=== PATIENT | female | born 1955 | race Caucasian/White ===

== ENCOUNTER 2016-08-29 09:29 | Emergency (ER) | payer OTHER ==
[~2016-08-29] VITALS: Ht 157.5 cm; Wt 132.7 kg
[~2016-08-29 09:29] MED LIST: ADVAIR 250/501 DISK IH; BIOFLEX TABLET1 EACH PO; CLARITHROMYCIN500 MG PO; FISH OIL300 MG PO; LEVOFLOXACIN750 MG PO; MACROBID100 MG PO; METOPROLOL SUCC50 MG PO; NORVASC5 MG PO; OMEPRAZOLE40 M1 PO; PREDNISONE10 MG PO; PRILOSEC40 MG PO; TOPROL XL50 MG PO; TYLENOL EXTRA500 MG PO; VENTOLIN HFA18 GM IH; WOMEN'S 50+ DA1 EACH PO; ZYRTEC10 M1 PO; ZYRTEC10 M2 PO
[2016-08-29 09:53] LABS: HEMATOCRIT 43.9 % (36.0-46.0); MCH 28.5 PG (29.0-34.0); MCHC 32.3 G/DL (30.0-36.0); MCV 88.2 FL (83-99); PLATELET COUNT 361 K/uL (156-360); RBC DIS.WIDTH-CV 13.2 % (11.8-14.6); RBC DIS.WIDTH-SD 42.5 % (39-53); RED BLOOD COUNT 4.98 M/uL (3.80-5.20); WHITE BLOOD COUNT 11.4 K/uL (4.1-10.2)
[2016-08-29 10:03] LABS: CHLORIDE 102 mEq/L (99-109); POTASSIUM 4.3 mEq/L (3.7-5.4); SODIUM 141 mEq/L (136-147)
[2016-08-29 10:05] LABS: GLUCOSE 146 mg/dL (70-99)
[2016-08-29 10:06] LABS: ANION GAP 11 MEQ/L (2-14)
[2016-08-29 10:09] LABS: GFR ESTIMATE (CALCULATED) > 59 mL/min/
[2016-08-29 10:10] LABS: UREA NITROGEN (BUN) 8 mg/dL (9-23)
[2016-08-29 10:41] LABS: INTER. NORMALIZED RATIO 1.1; PROTHROMBIN TIME 10.8 (9.2-11.2); PTT 32.2 (25-32)
[2016-08-29] MEDS ORDERED: CLEOCIN300 MG PO (12:56)
[2016-08-29 13:12] VITALS: BP 159/79
== END 2016-08-29 13:15 | disposition home or self-care (01) ==
LOC: EME 09:29
DX: L76.32 Postprocedural hematoma of skin and subcutaneous tissue following other procedure (principal); S30.0XXA Contusion of lower back and pelvis, initial encounter; X58.XXXA Exposure to other specified factors, initial encounter; I10 Essential (primary) hypertension; R73.9 Hyperglycemia, unspecified; Z90.710 Acquired absence of both cervix and uterus; Z85.42 Personal history of malignant neoplasm of other parts of uterus; Z86.711 Personal history of pulmonary embolism; Z79.01 Long term (current) use of anticoagulants; J44.9 Chronic obstructive pulmonary disease, unspecified
CPT/HCPCS: 74177; 80048; 85027; 85610; 85730; 86850; 86900; 86901; 99281; 99285; J7030

== ENCOUNTER 2016-08-30 23:33 | Emergency (ER) | payer OTHER ==
[~2016-08-30] VITALS: Ht 157.5 cm; Wt 132.7 kg
[~2016-08-30 23:33] MED LIST changes: +CLEOCIN300 MG PO
[2016-08-30 23:41] VITALS: BP 184/83
== END 2016-08-31 01:00 | disposition left against medical advice (07) ==
LOC: EME 23:33
DX: G89.18 Other acute postprocedural pain (principal); Z53.21 Procedure and treatment not carried out due to patient leaving prior to being seen by health care provider
CPT/HCPCS: 80048; 85027; 85610; 85730

== ENCOUNTER 2016-09-09 16:49 | Emergency (ER) | payer OTHER ==
[~2016-09-09] VITALS: Ht 157.5 cm; Wt 132.1 kg
[2016-09-09 17:29] LABS: HEMATOCRIT 38.3 % (36.0-46.0); MCHC 32.4 G/DL (30.0-36.0); MCV 86.5 FL (83-99); MEAN PLAT.VOLUME 10.3 uM^3 (9.5-12.4); PLATELET COUNT 284 K/uL (156-360); RBC DIS.WIDTH-CV 13.7 % (11.8-14.6); RED BLOOD COUNT 4.43 M/uL (3.80-5.20); WHITE BLOOD COUNT 9.4 K/uL (4.1-10.2)
[2016-09-09 17:38] LABS: INTER. NORMALIZED RATIO 1.1; PROTHROMBIN TIME 10.7 (9.2-11.2)
[2016-09-09 17:39] LABS: CHLORIDE 106 mEq/L (99-109); POTASSIUM 3.8 mEq/L (3.7-5.4)
[2016-09-09 17:40] LABS: SODIUM 141 mEq/L (136-147)
[2016-09-09 17:42] LABS: GLUCOSE 246 mg/dL (70-99)
[2016-09-09 17:43] LABS: ANION GAP 11 MEQ/L (2-14)
[2016-09-09 17:44] LABS: TOTAL BILIRUBIN 0.2 mg/dL (0.0-1.0)
[2016-09-09 17:45] LABS: ALKALINE PHOSPHATASE 71 IU/L (3-129); GFR ESTIMATE (CALCULATED) > 59 mL/min/
[2016-09-09 17:47] LABS: UREA NITROGEN (BUN) 11 mg/dL (9-23)
[2016-09-09 19:22] VITALS: BP 204/97
== END 2016-09-09 19:27 | disposition home or self-care (01) ==
LOC: EME 16:49
DX: N99.840 Postprocedural hematoma of a genitourinary system organ or structure following a genitourinary system procedure (principal); Y83.8 Other surgical procedures as the cause of abnormal reaction of the patient, or of later complication, without mention of misadventure at the time of the procedure; J44.9 Chronic obstructive pulmonary disease, unspecified; I10 Essential (primary) hypertension; K21.9 Gastro-esophageal reflux disease without esophagitis; Z85.42 Personal history of malignant neoplasm of other parts of uterus
CPT/HCPCS: 80053; 85027; 85610; 86850; 86900; 86901; 99281; 99284

== ENCOUNTER 2017-12-16 04:26 | Inpatient (IN) | payer OTHER ==
[~2017-12-16] VITALS: Ht 157.5 cm; Wt 126.0 kg
[~2017-12-16 04:26] MED LIST changes: +TYLENOL ARTHRI650 MG PO; -TYLENOL EXTRA500 MG PO; -ZYRTEC10 M1 PO; +ZYRTEC10 M3 PO
[2017-12-16 05:27] LABS: HEMATOCRIT 42.7 % (36.0-46.0); HEMOGLOBIN 14.7 G/DL (11.9-15.5); MCH 30.1 PG (29.0-34.0); MCHC 34.4 G/DL (30.0-36.0); MCV 87.5 FL (83-99); PLATELET COUNT 199 K/uL (156-360); RBC DIS.WIDTH-CV 13.7 % (11.8-14.6); RBC DIS.WIDTH-SD 43.9 % (39-53); RED BLOOD COUNT 4.88 M/uL (3.80-5.20); WHITE BLOOD COUNT 7.7 K/uL (4.1-10.2)
[2017-12-16 05:28] LABS: CHLORIDE 105 mEq/L (99-109); POTASSIUM 3.9 mEq/L (3.7-5.4); SODIUM 142 mEq/L (136-147)
[2017-12-16 05:30] LABS: GLUCOSE 164 mg/dL (70-99)
[2017-12-16 05:34] LABS: CREATININE 0.7 mg/dL (0.6-1.3); GFR ESTIMATE (CALCULATED) > 59 mL/min/
[2017-12-16 05:35] LABS: UREA NITROGEN (BUN) 15 mg/dL (9-23)
[2017-12-16 05:39] LABS: TROP-I INTERPRETATION NEGATIVE; TROPONIN-I < 0.01 ng/mL (0.0-0.30)
[2017-12-16 08:57] VITALS: BP 230/116
[2017-12-16 09:08] VITALS: BP 184/77
[2017-12-16 11:26] VITALS: BP 174/70
[2017-12-16 11:45] LABS: TROP-I INTERPRETATION NEGATIVE; TROPONIN-I < 0.01 ng/mL (0.0-0.30)
[2017-12-16 12:41] VITALS: BP 139/79
[2017-12-16] MEDS ORDERED: BREO ELLIPTA 21 EACH IH (14:26)
[2017-12-16] MEDS ORDERED: ELIQUIS2.5 MG PO (14:26)
[2017-12-16] MEDS ORDERED: SINGULAIR10 MG PO (14:27)
[2017-12-16] MEDS ORDERED: FLEXERIL10 MG PO (14:27)
[2017-12-16] MEDS ORDERED: NORVASC10 MG PO (14:27)
[2017-12-16] MEDS ORDERED: ALDACTONE25 MG PO (14:28)
[2017-12-16] MEDS ORDERED: GLUCOPHAGE500 MG PO (14:28)
[2017-12-16] MEDS ORDERED: ULTRAM50 MG PO (14:28)
[2017-12-16] MEDS ORDERED: ZANTAC150 MG PO (14:29)
[2017-12-16 17:00] VITALS: BP 120/60
[2017-12-16 17:33] LABS: TROP-I INTERPRETATION NEGATIVE; TROPONIN-I < 0.01 ng/mL (0.0-0.30)
[2017-12-16 20:00] VITALS: BP 148/74
[2017-12-17 00:37] VITALS: BP 150/67
[2017-12-17 05:04] VITALS: BP 140/60
[2017-12-17 09:00] VITALS: BP 184/82
[2017-12-17 11:29] VITALS: BP 183/81
[2017-12-17 17:02] VITALS: BP 158/80
[2017-12-17 19:25] VITALS: BP 160/74
[2017-12-18 00:20] VITALS: BP 164/84
[2017-12-18 04:27] VITALS: BP 164/60
[2017-12-18 08:07] VITALS: BP 144/84
[2017-12-18] MEDS ORDERED: APRESOLINE10 MG PO (10:51)
== END 2017-12-18 15:27 | disposition home or self-care (01) | DRG 310 ==
LOC: DELPENDDIS → EME → EDBD 04:26 → EME 04:26 → EDOF 07:20 → ENRESERV 07:24 → 4SOUTH 08:49 → ENPENDDIS 12-17 07:50 → 4SOUTH 12-17 10:19 → ENPENDDIS 12-18 → 4SOUTH 12-18 15:27
PROVIDERS: Emergency Medicine; Hospitalist; Physician Assistant
DX: R00.1 Bradycardia, unspecified (principal); R07.89 Other chest pain; I10 Essential (primary) hypertension; E11.9 Type 2 diabetes mellitus without complications; J45.909 Unspecified asthma, uncomplicated; E66.01 Morbid (severe) obesity due to excess calories; Z82.49 Family history of ischemic heart disease and other diseases of the circulatory system; Z79.84 Long term (current) use of oral hypoglycemic drugs; Z79.01 Long term (current) use of anticoagulants; J43.9 Emphysema, unspecified; K21.9 Gastro-esophageal reflux disease without esophagitis
CPT/HCPCS: 71046; 80048; 82948; 84484; 85027; 93005; 94640; 94799; 99281; 99285; G0378; J1644